=== PATIENT | male | born 1955 | race Caucasian/White ===

== ENCOUNTER 2021-01-15 13:20 | Emergency (ER) | payer BC, MEDICARE ==
--- NOTE | 2021-01-15 14:59 | CR ---
Left ankle: 4 views of the left ankle were obtained. Displaced lateral malleolus fracture is seen. Mildly displaced medial malleolus fracture is noted. Shifting of the talus in a lateral direction is seen. Plantar spur is noted. Mild degenerative change is seen within the midfoot. Diffuse soft tissue swelling is noted. Impression: 1. Bimalleolar fracture showing displacement. Shifting of the talus in a lateral direction is noted. 2. Diffuse soft tissue swelling and other incidental findings as noted above. Diagnostic code #3
--- NOTE | 2021-01-15 15:00 | EDM.PDOC ---
ED HPI GENERAL MEDICAL PROBLEM - General Chief Complaint: Lower Extremity Injury/Pain Stated Complaint: LT FOOT INJURY Time Seen by Provider: 01/15/21 13:35 Source of Information: Reports: Patient, Family, RN Notes Reviewed History Limitations: Reports: No Limitations - History of Present Illness INITIAL COMMENTS - FREE TEXT/NARRATIVE: Patient is a 65-year-old male presenting to the emergency department with complaints of left ankle pain and swelling. Him and his were hiking down into [place] when he fell. He was unable to stand on the ankle after this. They called 911 and fire department EMS carried him out of the [place]. EMS splinted the ankle and his drove him to the ER. They are visiting from [place]. Pt and his report that he will not take anything for pain other than ibuprofen. He does not want any narcotic pain medications. Denies any hx of previous fractures to this ankle. Denies any other injuries.] Left Ankle Pain Score (Numeric/FACES): 6 - Related Data Allergies Allergy/AdvReac Type Severity Reaction Status Date / Time amoxicillin Allergy Severe Hives Verified 01/15/21 13:44 Home Meds: Home Meds . [No Known Home Meds] 01/15/21 [History] Past Medical History Neurological History: Reports: Migraines, Other (See Below) Other Neuro History: Vagal/vago Syncope - Infectious Disease History Infectious Disease History: Reports: Chicken Pox, Influenza, Measles, Mumps - Past Surgical History HEENT Surgical History: Reports: Naso-Sinus Surgery GI Surgical History: Reports: Cholecystectomy Social & Family History - Family History Family Medical History: No Pertinent Family History - Tobacco Use Tobacco Use Status *Q: Never Tobacco User Second Hand Smoke Exposure: No - Caffeine Use Caffeine Use: Reports: Tea - Recreational Drug Use Recreational Drug Use: No Review of Systems - Review of Systems Review Of Systems: Comprehensive ROS is negative, except as noted in HPI. ED EXAM, GENERAL - Physical Exam Exam: See Below Exam Limited By: No Limitations General Appearance: Alert, WD/WN, No Apparent Distress Respiratory/Chest: No Respiratory Distress, Lungs Clear, Normal Breath Sounds, No Accessory Muscle Use, Chest Non-Tender Cardiovascular: Normal Peripheral Pulses, Regular Rate, Rhythm, No Edema, No Gallop, No JVD, No Murmur, No Rub Extremities: Other (Generalized edema to the left ankle. Slight inward deformity. CMS intact distal to the injury.) Neurological: Alert, Oriented, CN II-XII Intact, Normal Cognition, Normal Gait, Normal Reflexes, No Motor/Sensory Deficits Psychiatric: Normal Affect, Normal Mood Course - Vital Signs Last Recorded V/S: Last Vital Signs Temp 98.9 F 01/15/21 13:34 Pulse 81 01/15/21 13:34 Resp 20 01/15/21 13:34 BP 154/76 H 01/15/21 13:34 Pulse Ox 97 01/15/21 13:34 - Orders/Labs/Meds Orders: Active Orders 24 hr Category Date Time Status DME for Discharge [COMM] Routine Oth 01/15/21 15:04 Ordered - Re-Assessments/Exams Free Text/Narrative Re-Assessment/Exam: 01/15/21 1500 X-ray of the left ankle shows evidence of a bimalleolar fracture. Spoke with orthopedist, Dr. Hodges. He visualized the x-rays. Recommend that the patient be placed in a posterior and stirrup splint with traction on the toes during splint application. Discussed results with patient. He continues to deny the need for pain medications. Discussed that this will likely be uncomfortable and he verbalized understanding of this. He requested a tongue depressor to bite down on if needed. 01/15/21 1550 X-rays were reviewed by orthopedist, Dr. Hodges after splint application. He is satisfied with the alignment of the joint. Patient will be discharged with a disc of his images. He been instructed to follow-up with orthopedist in [place] in 2 to 3 weeks for surgical repair. Recommend ice and elevation as well as ibuprofen as needed for discomfort. Discharge instructions as documented. Departure - Departure Time of Disposition: 16:09 Disposition: Home, Self-Care 01 Condition: Good Clinical Impression: Bimalleolar ankle fracture Qualifiers: Encounter type: initial encounter Fracture type: closed Laterality: right Qualified Code(s): S82.841A - Displaced bimalleolar fracture of right lower leg, initial encounter for closed fracture - Discharge Information *PRESCRIPTION DRUG MONITORING PROGRAM REVIEWED*: No *COPY OF PRESCRIPTION DRUG MONITORING REPORT IN PATIENT PEDRO: No Instructions: Closed Reduction for Ankle Fracture or Dislocation, Care After Referrals: PCP,Not In Area [Primary Care Provider] - Forms: ED Department Discharge Additional Instructions: You were seen in the emergency department today for evaluation after falling and injuring your left ankle. X-rays were completed and show that you have a bimalleolar ankle fracture. This fracture was reduced and you have been placed in a splint. This should remain on at all times and be kept clean and dry. Elevate the extremity frequently to reduce swelling. You may also ice through the splint. Tylenol and ibuprofen may be used for discomfort. You have been provided a disc with your x-ray images. Recommend that you follow-up with orthopedics as soon as you return to [place]. If you experience any difficulties on your way back home, please present to the nearest medical facility for evaluation. Sepsis Event Note (ED) - Evaluation Sepsis Screening Result: No Definite Risk - Focused Exam Vital Signs: Vital Signs Temp Pulse Resp BP Pulse Ox 01/15/21 13:34 98.9 F 81 20 154/76 H 97 - My Orders Last 24 Hours: My Active Orders 01/15/21 15:04 DME for Discharge [COMM] Routine - Assessment/Plan Last 24 Hours: My Active Orders 01/15/21 15:04 DME for Discharge [COMM] Routine
--- NOTE | 2021-01-15 16:05 | CR ---
Left ankle: 4 views of the left ankle were obtained. Comparison: Prior ankle exam performed earlier on the same day (2:10 PM). Previous bimalleolar fracture shows slightly better reduction. Distal fibular fracture remains displaced by about 5 mm. Medial malleolus fracture is better aligned. Talus remains minimally shifted laterally. Soft tissue swelling is noted. Fiberglass cast or splint is in place. Impression: 1. Slightly improved bimalleolar fractures. Lateral malleolus fracture remains displaced by about 5 mm. 2. Slight shifting of the talus in the lateral direction. 3. Fiberglass cast or splint. Diagnostic code #3
== END 2021-01-15 17:02 | disposition home or self-care (01) ==
LOC: JD.ED 13:20
DX: S82.841A Displaced bimalleolar fracture of right lower leg, initial encounter for closed fracture (principal); Z88.0 Allergy status to penicillin; W18.39XA Other fall on same level, initial encounter
CPT/HCPCS: 27810; 73610-26-LT; 73610-LT; 99283; 99283-25